=== PATIENT | male | born 1970 | race Caucasian/White ===

== ENCOUNTER → 2021-10-15 | Outpatient (CLI) | payer OTHER ==
[~2021-10-15] MED LIST: CLARITIN10 MG PO
== END ==
LOC: LAB 08:10
PROVIDERS: ATTEND Student in an Organized Health Care Education/Training Program
DX: Z01.812 Encounter for preprocedural laboratory examination (principal); Z20.822 Contact with and (suspected) exposure to COVID-19

== ENCOUNTER 2021-10-16 06:07 | Day surgery (SDC) | payer OTHER ==
[~2021-10-16] VITALS: Ht 177.8 cm; Wt 115.7 kg
--- NOTE | ~2021-10-16 | O ---
[facility] [place] [address] OPERATIVE REPORT Name: HARSHA HOLMAN Catherine Room #: [facility]#: [id number] Admission: 10/16/21 Attend Phys: Carl Ashford MD Discharge: 10/16/21 Date of : 68 Report #: [id number] THIS REPORT FOR: cc: FAM - Family physician unknown FAM - Family physician unknown Carl Ashford MD ~ DATE OF SERVICE: 10/16/2021 SERVICE: Orthopedics. FACILITY: [facility] SURGEON: Carl Ashford MD LAMP MECHANIC: Sharon Pichardo NP. PREOPERATIVE DIAGNOSES: 1. Left knee pain. 2. Left knee medial meniscus tear. POSTOPERATIVE DIAGNOSES: 1. Left knee pain. 2. Left knee medial meniscus tear. 3. Left knee inner rim lateral meniscus tear. 4. Left knee trochlear chondromalacia. PROCEDURE PERFORMED: Left knee arthroscopy with partial medial and lateral meniscectomies with a trochlear chondroplasty. COMPLICATIONS: None. DRAINS: None. SPECIMENS: None. FINDINGS: 1. Overall intact articular cartilage of the medial and lateral compartments, other than some fissuring of the more lateral aspect of the medial tibial articular cartilage. 2. Unstable flap tear of the posterior horn of the medial meniscus, treated with meniscectomy of approximately 30% meniscal volume. 3. Small inner rim fraying of the lateral meniscus, treated with partial meniscectomy. 4. Grade 3 chondromalacia of the trochlea, treated with chondroplasty. HISTORY: The patient is a 51-year-old gentleman with approximately 2-year [facility] [address] [place] [address] OPERATIVE REPORT Name: HARSHA HOLMAN Room #: DEP [facility]..#: [id number] Admission: 10/16/21 Attend Phys: Carl Ashford MD Discharge: 10/16/21 Date of : 68 Report #: [id number] history of persistent problems in his left knee secondary to a symptomatic medial meniscus tear that had failed conservative measures including rest, activity modifications, physical therapy, oral medicines and modalities. He had an MRI, which was confirmatory for a medial meniscus tear and he is indicated for surgical treatment after failing conservative measures and having pain that affected daily activities. Given the injury, he wished to move forward with surgical management. Risks, benefits, alternatives and indications for surgery discussed with him in detail. Risks include but not limited to pain, bleeding, infection, injuring nerves or blood vessels, persistent pain despite surgical intervention, failure of any repairs, progression of any preexisting chondral injury, stiffness, need for further surgery as well as complications related to anesthesia. Despite the risks, he wished to proceed. PROCEDURE IN DETAIL: After left lower extremity was correctly identified in the preoperative holding area as the operative extremity, the patient was taken to the operating room where general anesthesia was induced without complications. He was padded appropriately. Prophylactic antibiotics were administered at appropriate time. Left lower extremity was then prepped and draped in standard sterile fashion. Timeout procedure performed. Esmarch was used, tourniquet inflated to 300 mmHg. Standard anterolateral viewing portal was established followed by anteromedial working portal. Diagnostic arthroscopy revealed the above findings. The shaver was used to resect some synovitis in the anterior knee and then the medial meniscus was evaluated. There was an unstable posterior horn flap tear that extended towards the root. There was an unstable flap at the meniscal body posterior horn junction. The unstable portions were resected with a biter followed by a shaver to stable parameters and then a very minimal chondroplasty was performed in the medial compartment as overall things looked healthier. The cruciates were intact. The lateral compartment was evaluated. There was some fraying of the inner rim of the lateral meniscus in the white-white zone, and this was resected with a shaver. The medial meniscus had approximately 30% meniscal volume resected. The lateral meniscus had less than 5% of the meniscal volume resected. After this was completed and the knee was placed into extension, the patellofemoral joint was evaluated again and there was some grade 3 chondromalacia of the trochlea, so trochlear chondroplasty was performed with a shaver and then the arthroscopic effusion was drained. Instruments were removed. Portal sites were closed. Sterile dressing was applied. The patient was awakened from anesthesia and taken to recovery room in stable condition. No complications. All counts were reported as correct. By: [id number] Carl Ashford MD /nt
[2021-10-16 06:57] VITALS: BP 145/88
[2021-10-16 08:19] VITALS: BP 145/88
== END 2021-10-16 09:20 | disposition home or self-care (01) ==
LOC: OR → TBA 06:13 → OR 06:24
PROVIDERS: ATTEND Orthopaedic Surgery Sports Medicine
DX: M25.562 Pain in left knee (principal); S83.242A Other tear of medial meniscus, current injury, left knee, initial encounter; S83.282A Other tear of lateral meniscus, current injury, left knee, initial encounter; M94.262 Chondromalacia, left knee; X58.XXXA Exposure to other specified factors, initial encounter; Y93.89 Activity, other specified; Y92.89 Other specified places as the place of occurrence of the external cause; Y99.8 Other external cause status
CPT/HCPCS: 50010; 50101; 50405; 56527; 57103; 57180; 58589; 58680; 62110; 62900; 70005